=== PATIENT | female | born 1950 | race Caucasian/White ===

== ENCOUNTER 2019-01-13 12:06 | Emergency (ER) | payer OTHER, MEDICARE ==
[2019-01-13] MEDS ORDERED: FENTANYL CITRATE INJ/PF 100 MCG/2 ML AMPUL IV ONE (12:45)
--- NOTE | 2019-01-13 12:45 | ER Document Report ---
Entered by KIRILL MANZANARES SCRIBE 01/13/19 1226 Acting as scribe for:LUNA VALENCIA MD ED Extremity Problem, Lower - General Stated Complaint: RIGHT ANKLE INJURY Time Seen by Provider: 01/13/19 12:13 Primary Care Provider: [facility] [Provider Group] - 01/17/19 Mode of Arrival: Medic Information source: Patient Notes: Patient is a 68-year-old female who presents to the emergency department today with complaints of a fall that occurred just prior to arrival. Patient states she had been sitting down on the toilet at [facility] for a decent amount of time, she went to stand up, felt dizzy and fell. Patient has an obvious deformity to her right foot. - Related Data Allergies/Adverse Reactions: No Known Allergies Allergy (Verified 01/13/19 12:33) Past Medical History - General Information source: Patient, [facility] Records - Social History Smoking Status: Former Smoker - quit in 89 Cigarette use (# per day): No Frequency of alcohol use: Rare Drug Abuse: None Lives with: Family Family History: Reviewed & Not Pertinent - Past Medical History Cardiac Medical History: Reports: Hx Hypercholesterolemia, Hx Hypertension Past Surgical History: Reports: Hx Tonsillectomy, Other - Lumbar laminectomy in 2017 Review of Systems - Review of Systems Constitutional: No symptoms reported EENT: No symptoms reported Cardiovascular: No symptoms reported Respiratory: No symptoms reported Gastrointestinal: No symptoms reported Genitourinary: No symptoms reported Female Genitourinary: No symptoms reported Musculoskeletal: See HPI, Joint pain - right foot Skin: No symptoms reported Hematologic/Lymphatic: No symptoms reported Neurological/Psychological: No symptoms reported -: Yes All other systems reviewed and negative Physical Exam - Vital signs Vitals: Resp Pulse Ox 27 H 96 01/13/19 12:29 01/13/19 12:29 - Notes Notes: Physical Exam: General: Alert, appears well. HEENT: Normocephalic. Atraumatic. PERRL. Extraocular movements intact. Oroph arynx clear. Neck: Supple. Non-tender. Respiratory: No respiratory distress. Clear and equal breath sounds bilaterally. Cardiovascular: Regular rate and rhythm. Abdominal: Normal Inspection. Non-tender. No distension. Normal Bowel Sounds. Back: No gross abnormalities. Extremities: Upper extremities: Normal inspection. Normal ROM. Lower extremities: Obvious deformity of right foot. Lateral displacement of right foot clinically. 2+ dorsalis pedis pulse. Brisk capillary refill distally. Normal sensation distally. The fractured edge of the medial malleolus is tenting the skin, there is minor abrasion over this area, there is no break through the skin. Neurological: Normal cognition. AAOx4. Normal speech. Psychological: Normal affect. Normal Mood. Skin: Warm. Dry. Normal color. Course - Vital Signs Vital signs: Temp Pulse Resp BP Pulse Ox 98.3 F 14 130/74 H 99 01/13/19 12:32 01/13/19 14:02 01/13/19 14:02 01/13/19 14:02 - Laboratory Result Diagrams: 01/13/19 12:45 01/13/19 12:45 Laboratory results interpreted by me: 01/13/19 01/13/19 12:45 12:45 WBC 11.0 H Lymph % (Auto) 7.7 L Absolute Neuts (auto) 9.2 H Seg Neutrophils % 83.9 H Est GFR ( Amer) 53 L Est GFR (MDRD) Non-Af 43 L Glucose 115 H - Diagnostic Test Radiology reviewed: Image reviewed, Reports reviewed - Trimalleolar fracture dislocation of the right ankle. - EKG Interpretation by Me EKG shows normal: Sinus rhythm, [place], Intervals, QRS Complexes, ST-T Waves Rate: Normal - 69 Rhythm: NSR Voltage: Consistant with LVH P Waves: LAE When compared to previous EKG there are: Previous EKG unavailable - Consults Dr. Blakely Time consulted: 13:15 Procedures - Joint Reduction/Fracture Care Right Ankle Consent obtained: Yes - Verbal consent Conscious sedation: No Pre-procedure NV exam: Yes Fracture: Closed Post-procedure NV exam: Yes Complications: No Notes: 01/13/19 13:20 Ankle is reduced by gently pulling the foot downward, and forward, while placing lateral pressure to move the foot medially. Discharge - Discharge Clinical Impression: Trimalleolar fracture of left ankle Qualifiers: Encounter type: initial encounter Fracture type: closed Qualified Code(s): S82.852A - Displaced trimalleolar fracture of left lower leg, initial encounter for closed fracture Condition: Stable Disposition: HOME, SELF-CARE Additional Instructions: Fractured Ankle (Trimalleolar) You have a fracture of both bones of the lower leg at the ankle. If there is dispacement of the bones from their proper alignment, manipulation of the ankle and foot may be necessary to re-align the bones properly. This fracture wll require a cast for healing and some of the more serious fractures of this type will require surgery. If surgery is not required, the bones requires only protection and sufficient time for healing. The initial treatment is immobilization, elevation, and ice packs. Depending on the type of fracture, immobilization may consist of a splint or cast. The length of time required for healing depends on the type of fracture. You will be referred to an orthopedic surgeon who will re-assess you periodically to make certain that the bone heals without complications. It's important that you follow the instructions given you. Elevate your foot all the time. Use ice packs to help reduce swelling. Use a walker to get around her house as needed. Continue your regularly prescribed pain medication. Follow-up with Dr. Blakely at [facility] on --call on Monday to confirm an appointment time. RETURN TO THE EMERGENCY ROOM IF ANY NEW OR WORSENING SYMPTOMS. Referrals: [facility] [Provider Group] - 01/17/19 Scribe Attestation: 01/13/19 12:51 I personally performed the services described in the documentation, reviewed and edited the documentation which was dictated to the scribe in my presence, and it accurately records my words and actions. I personally performed the services described in the documentation, reviewed and edited the documentation which was dictated to the scribe in my presence, and it accurately records my words and actions.
--- NOTE | 2019-01-13 12:52 | RADIOLOGY REPORT (SQ) ---
EXAM DESCRIPTION: ANKLE RIGHT COMPLETE COMPLETED DATE/TIME: 01/13/2019 12:39 pm REASON FOR STUDY: fall; deformity to the ankle COMPARISON: None. NUMBER OF VIEWS: Three views. TECHNIQUE: AP, lateral, and oblique radiographic images acquired of the right ankle. LIMITATIONS: None. FINDINGS: MINERALIZATION: Normal. BONES: Comminuted fractures of the distal fibula, displaced fracture of the medial malleolus, and fra cture of the posterior malleolus. No worrisome bone lesions. JOINTS: Disruption of the tibiotalar joint. SOFT TISSUES: No soft tissue swelling. No foreign body. OTHER: No other significant finding. IMPRESSION: TRIMALLEOLAR FRACTURE WITH DISLOCATION OF THE ANKLE. TECHNICAL DOCUMENTATION: JOB ID: [id number] [employer]- All Rights Reserved Reading location - IP/workstation name: [email or web address]
[2019-01-13 13:10] LABS: ABSOLUTE BASOPHILS # (AUTO) 0.1 10^3/uL (0.0-0.2); ABSOLUTE EOSINOPHILS # (AUTO) 0.1 10^3/uL (0.0-0.6); ABSOLUTE LYMPHOCYTES (AUTO) 0.8 10^3/uL (0.5-4.7); ABSOLUTE MONOCYTES (AUTO) 0.7 10^3/uL (0.1-1.4); ABSOLUTE NEUT (AUTO) 9.2 10^3/uL (1.7-8.2); BASOPHILS % (AUTO) 0.6 % (0-2); EOSINOPHILS % (AUTO) 1.4 % (0-6); HEMATOCRIT 41.2 % (36.0-47.0); HEMOGLOBIN 13.8 g/dL (12.0-15.5); LYMPHOCYTES % (AUTO) 7.7 % (13-45); MEAN CORPUSCULAR HEMOGLOBIN 28.7 pg (27.0-33.4); MEAN CORPUSCULAR HGB CONC 33.5 g/dL (32.0-36.0); MEAN CORPUSCULAR VOLUME 86 fl (80-97); MONOCYTES % (AUTO) 6.4 % (3-13); PLATELET COUNT 207 10^3/uL (150-450); RED BLOOD COUNT 4.81 10^6/uL (3.72-5.28); RED CELL DISTRIBUTION WIDTH 13.8 % (11.5-14.0); SEGMENTED NEUTROPHILS % (AUTO) 83.9 % (42-78); TOTAL CELLS COUNTED % (AUTO) 100 %
[2019-01-13 13:22] LABS: ALBUMIN 4.2 g/dL (3.5-5.0); ALKALINE PHOSPHATASE 87 U/L (38-126); ANION GAP 9 (5-19); ASPARTATE AMINO TRANSFERASE 23 U/L (14-36); BILIRUBIN,DIRECT 0.3 mg/dL (0.0-0.4); BILIRUBIN,TOTAL 0.8 mg/dL (0.2-1.3); BLOOD UREA NITROGEN 18 mg/dL (7-20); CALCIUM 9.9 mg/dL (8.4-10.2); CARBON DIOXIDE 27 mmol/L (22-30); CHLORIDE 103 mmol/L (98-107); CREATINE KINASE 91 U/L (30-135); GLUCOSE 115 mg/dL (75-110); POTASSIUM 3.9 mmol/L (3.6-5.0); TOTAL PROTEIN 6.7 g/dL (6.3-8.2)
--- NOTE | 2019-01-13 14:12 | RADIOLOGY REPORT (SQ) ---
EXAM DESCRIPTION: CT CERVICAL SPINE WITHOUT COMPLETED DATE/TIME: 01/13/2019 1:57 pm REASON FOR STUDY: UNWITNESSED SYNCOPAL EPISODE COMPARISON: None. TECHNIQUE: Axial images acquired through the cervical spine without intravenous contrast. Images re viewed with lung, soft tissue and bone windows. Reconstructed coronal and sagittal MPR images review ed. Images stored on PACS. All CT scanners at this facility use dose modulation, iterative reconstruction, and/or weight based d osing when appropriate to reduce radiation dose to as low as reasonably achievable (ALARA). [facility]: Dose Right [facility]: CareDose [facility]: Dose Right [facility]: Teradose 4D [facility]: Smart [email or web address] RADIATION DOSE: CT Rad equipment meets quality standard of care and radiation dose reduction techniq ues were employed. CTDIvol: 17.2 mGy. DLP: 370 mGy-cm. mGy. LIMITATIONS: None. FINDINGS: ALIGNMENT: Anatomic. MINERALIZATION: Normal. VERTEBRAL BODIES: No fractures or dislocation. DISCS: No significant disc disease. FACETS, LATERAL MASSES, POSTERIOR ELEMENTS: No fractures. No dislocation. No acute findings. HARDWARE: None in the spine. VISUALIZED RIBS: No fractures. LUNG APICES AND SOFT TISSUES: No significant or acute findings. OTHER: No other significant finding. IMPRESSION: NO ACUTE OR SIGNIFICANT FINDINGS IN THE CERVICAL SPINE. TECHNICAL DOCUMENTATION: JOB ID: [id number] Quality ID # [id number]: Final reports with documentation of one or more dose reduction techniques (e.g., Au tomated exposure control, adjustment of the mA and/or kV according to patient size, use of iterative reconstruction technique) 2010 [employer]- All Rights Reserved Reading location - IP/workstation name: [email or web address]
--- NOTE | 2019-01-13 14:13 | RADIOLOGY REPORT (SQ) ---
EXAM DESCRIPTION: CT HEAD WITHOUT COMPLETED DATE/TIME: 01/13/2019 1:57 pm REASON FOR STUDY: UNWITNESSED SYNCOPAL EPISODE COMPARISON: None. TECHNIQUE: Axial images acquired through the brain without intravenous contrast. Images reviewed wi th bone, brain and subdural windows. Additional sagittal and coronal reconstructions were generated. Images stored on PACS. All CT scanners at this facility use dose modulation, iterative reconstruction, and/or weight based d osing when appropriate to reduce radiation dose to as low as reasonably achievable (ALARA). [facility]: Dose Right [facility]: CareDose [facility]: Dose Right [facility]: Teradose 4D [facility]: Smart [employer] RADIATION DOSE: CT Rad equipment meets quality standard of care and radiation dose reduction techniq ues were employed. CTDIvol: 53.2 mGy. DLP: 1017 mGy-cm. mGy. LIMITATIONS: None. FINDINGS: VENTRICLES: Normal size and contour. CEREBRUM: No masses. No hemorrhage. No midline shift. No evidence for acute infarction. Normal gra y/white matter differentiation. No areas of low density in the white matter. CEREBELLUM: No masses. No hemorrhage. No alteration of density. No evidence for acute infarction. EXTRAAXIAL SPACES: No fluid collections. No masses. ORBITS AND GLOBE: No intra- or extraconal masses. Normal contour of globe without masses. CALVARIUM: No fracture. PARANASAL SINUSES: No fluid or mucosal thickening. SOFT TISSUES: No mass or hematoma. OTHER: No other significant finding. IMPRESSION: NORMAL BRAIN CT WITHOUT CONTRAST. EVIDENCE OF ACUTE STROKE: NO. COMMENT: Quality ID # [id number]: Final reports with documentation of one or more dose reduction techniques (e.g., Automated exposure control, adjustment of the mA and/or kV according to patient size, use of iterative reconstruction technique) TECHNICAL DOCUMENTATION: JOB ID: [id number] [employer]- All Rights Reserved Reading location - IP/workstation name: [email or web address]
--- NOTE | 2019-01-13 14:14 | RADIOLOGY REPORT (SQ) ---
EXAM DESCRIPTION: ANKLE RIGHT COMPLETE COMPLETED DATE/TIME: 01/13/2019 1:56 pm REASON FOR STUDY: post reduction COMPARISON: 01/13/2019. NUMBER OF VIEWS: Two views. TECHNIQUE: AP and lateral radiographic images acquired of the right ankle. LIMITATIONS: None. FINDINGS: MINERALIZATION: Normal. BONES: Trimalleolar fracture with improved alignment and reduction of the tibiotalar dislocation foll owing closed reduction. JOINTS: No effusions. SOFT TISSUES: No soft tissue swelling. No foreign body. OTHER: No other significant finding. IMPRESSION: IMPROVED APPEARANCE FOLLOWING CLOSED REDUCTION. TECHNICAL DOCUMENTATION: JOB ID: [id number] [employer]- All Rights Reserved Reading location - IP/workstation name: [email or web address]
--- NOTE | 2019-01-13 14:16 | RADIOLOGY REPORT (SQ) ---
EXAM DESCRIPTION: CT RT LOWER EXTREMITY WITHOUT COMPLETED DATE/TIME: 01/13/2019 1:57 pm REASON FOR STUDY: Right ankle trimalleolar fracture COMPARISON: Radiographs from earlier. EXAM PARAMETERS: TECHNIQUE:Axial imaging performed through the right ankle with reformatted coronal and sagittal imaging windowed for bone and soft tissues. Images saved to PACS. 3D IMAGING: Were 3D images as MIP, SSD, or volume rendering performed at the work station? No All CT scanners at this facility use dose modulation, iterative reconstruction, and/or weight based d osing when appropriate to reduce radiation dose to as low as reasonably achievable (ALARA). [facility]: Dose Right [facility]: SureCare [facility]: Dose Right [facility]: Teradose 4D [facility]: Smart [employer] RADIATION DOSE: CT Rad equipment meets quality standard of care and radiation dose reduction techniqu es were employed. CTDIvol: 4.1 mGy. DLP: 65 mGy-cm. mGy. LIMITATIONS: None. FINDINGS: SOFT TISSUES: Soft tissue swelling about the ankle. Limited assessment with CT. No radio paque foreign body detected. BONES: As seen on radiography, there are extensive ankle fractures. Includes comminuted fracture thr ough the distal fibula, nondisplaced transverse minimally comminuted medial malleolus fracture. Also comminuted fracture through posterior malleolus of the tibia. This is also minimally comminuted wit h slight superior displacement. Mortise is maintained without overt subluxation or dislocation detec hossein currently. Talar dome intact. Calcaneus and other visualized tarsals look intact. MINERALIZATION: Normal. OTHER: No other significant finding. IMPRESSION: 1. Trimalleolar ankle fracture. Previously noted dislocation has been reduced. TECHNICAL DOCUMENTATION: JOB ID: [id number] [facility] [id number]: Final reports with documentation of one or more dose reduction techniques (e.g., Automate d exposure control, adjustment of the mA and/or kV according to patient size, use of iterative recons truction technique) 2010 [employer]- All Rights Reserved Reading location - IP/workstation name: [email or web address]
[2019-01-13 15:20] VITALS: BP 148/90
--- NOTE | 2019-01-13 22:35 | EKG REPORT ---
SEVERITY:- ABNORMAL ECG - SINUS RHYTHM PROBABLE LEFT ATRIAL ABNORMALITY LEFT VENTRICULAR HYPERTROPHY DIFFUSE NONSPECIFIC ST-T CHANGES : Confirmed by: Bro Bustillo MD 13-Jan-2019 22:34:53
== END 2019-01-13 15:26 | disposition home or self-care (01) ==
LOC: ER 12:06
DX: S82.852A Displaced trimalleolar fracture of left lower leg, initial encounter for closed fracture (principal); M25.571 Pain in right ankle and joints of right foot; W19.XXXA Unspecified fall, initial encounter; Y93.89 Activity, other specified; Y92.22 Religious institution as the place of occurrence of the external cause; R42 Dizziness and giddiness; I10 Essential (primary) hypertension; Z87.891 Personal history of nicotine dependence
CPT/HCPCS: 93005; 99283; 36415; 82550; 85025; 80053; 84484; 73610; 70450; 72125; 73700; 93010; 27818; J3010

== ENCOUNTER 2019-01-22 11:49 | Observation (INO) | payer OTHER, MEDICARE ==
[~2019-01-22 11:49] MED LIST: CEFAZOLIN SODIUM 2 GM in DEXTROSE 5%-WATER 100 ML IV PRN
[2019-01-22] MEDS ORDERED: DEXAMETHASONE SOD PHOSPHATE INJ 4 MG/1 ML VIAL ONE (12:04)
[2019-01-22] MEDS ORDERED: LIDOCAINE 2% INJ-PF (20 MG/ML) 2 ML AMPUL ONE (12:04)
[2019-01-22] MEDS ORDERED: ONDANSETRON HCL INJ/PF 4 MG/2 ML SDV ONE ×2 (12:04→18:51)
[2019-01-22] MEDS ORDERED: FENTANYL CITRATE INJ/PF 250 MCG/5 ML AMPULE ONE (14:06)
[2019-01-22] MEDS ORDERED: MIDAZOLAM 2 MG/2 ML INJ ONE (14:06)
[2019-01-22] MEDS ORDERED: PROPOFOL INJ 200 MG/20 ML VIAL IV ONE ×2 (14:07→14:17)
[2019-01-22] MEDS ORDERED: LIDOCAINE 2% INJ (20 MG/ML) 20 ML MDV ONE (14:18)
[2019-01-22] MEDS ORDERED: LIDOCAINE 2%/EPINEPHRINE INJ 20 ML VIAL ONE (15:00)
[2019-01-22] MEDS ORDERED: LIDOCAINE 1% INJ-PF (10 MG/ML) 30 ML SDV ONE (15:01)
[2019-01-22] MEDS ORDERED: BUPIVACAINE HCL 0.5 % INJ/PF 30 ML SDV ONE (15:01)
[2019-01-22] MEDS ORDERED: ROPIVACAINE HCL 0.5% INJ/PF (5 MG/1 ML) 30 ML SDV ONE (15:04)
[2019-01-22] MEDS ORDERED: LIDOCAINE 1% INJ (10 MG/ML) 10 ML MDV INJ ONE ×2 (15:30)
[2019-01-22] MEDS ORDERED: BUPIVACAINE HCL 0.5 % INJ/PF 30 ML SDV INJ ONE ×2 (15:30)
[2019-01-22] MEDS ORDERED: MEPERIDINE HCL/PF INJ 25 MG/1 ML DISP.SYRIN IV PRN (15:35)
[2019-01-22] MEDS ORDERED: PROMETHAZINE HCL INJ 25 MG/1 ML VIAL IV PRN (15:35)
[2019-01-22] MEDS ORDERED: FENTANYL CITRATE INJ/PF 100 MCG/2 ML AMPUL IV PRN ×3 (15:35)
[2019-01-22] MEDS ORDERED: DIPHENHYDRAMINE HCL 50 MG/ML VIAL IV PRN (15:35)
[2019-01-22] MEDS ORDERED: ONDANSETRON 4 MG TAB.RAPDIS PO PRN (18:05)
[2019-01-22] MEDS ORDERED: ZOLPIDEM TARTRATE 5 MG TABLET PO PRN (18:05)
[2019-01-22] MEDS ORDERED: NORMAL SALINE 1000 ML 1,000 ML IV PRN (18:05)
[2019-01-22] MEDS ORDERED: MAG HYDROX/AL HYDROX/SIMETH SUSP 30 ML UDCUP PO PRN (18:05)
[2019-01-22] MEDS ORDERED: FENTANYL CITRATE INJ/PF 100 MCG/2 ML AMPUL ONE (18:08)
[2019-01-22] MEDS ORDERED: TRAMADOL HCL 50 MG TABLET PO PRN (18:15)
[2019-01-22] MEDS ORDERED: DIPHENHYDRAMINE HCL 25 MG CAPSULE PO PRN (18:16)
--- NOTE | 2019-01-22 18:26 | RADIOLOGY REPORT (SQ) ---
EXAM DESCRIPTION: NO CHG FLUORO; ANKLE RIGHT AP/LATERAL COMPLETED DATE/TIME: 01/22/2019 5:55 pm REASON FOR STUDY: ORIF RIGHT ANKLE COMPARISON: None. FLUOROSCOPY TIME: 0.8 minutes 12 Images saved to PACS LIMITATIONS: None. PROCEDURE: ORIF right ankle FINDINGS: Images from fluoro document the procedure. There are 2 screws in the medial malleolus and a long compression plate on the distal fibula. IMPRESSION: ORIF right ankle. Refer to operative note for further information. COMMENT: PQRS 6045F: Fluoroscopy time of the procedure is documented in the report. TECHNICAL DOCUMENTATION: JOB ID: [id number] [employer]- All Rights Reserved Reading location - IP/workstation name: [email or web address]
--- NOTE | 2019-01-22 18:26 | RADIOLOGY REPORT (SQ) ---
EXAM DESCRIPTION: NO CHG FLUORO; ANKLE RIGHT AP/LATERAL COMPLETED DATE/TIME: 01/22/2019 5:55 pm REASON FOR STUDY: ORIF RIGHT ANKLE COMPARISON: None. FLUOROSCOPY TIME: 0.8 minutes 12 Images saved to PACS LIMITATIONS: None. PROCEDURE: ORIF right ankle FINDINGS: Images from fluoro document the procedure. There are 2 screws in the medial malleolus and a long compression plate on the distal fibula. IMPRESSION: ORIF right ankle. Refer to operative note for further information. COMMENT: PQRS 6045F: Fluoroscopy time of the procedure is documented in the report. TECHNICAL DOCUMENTATION: JOB ID: [id number] [employer]- All Rights Reserved Reading location - IP/workstation name: [email or web address]
[2019-01-22] MEDS ORDERED: HYDROMORPHONE HCL INJ/PF 2 MG/ML AMPULE ONE (18:32)
[2019-01-22] MEDS ORDERED: OXYCODONE-ACETAMINOPHEN 5-325 MG TABLET ONE (18:35)
[2019-01-22] MEDS: OXYCODONE-ACETAMINOPHEN 5-325 MG TABLET PO PRN ×2 (18:38→23:57)
--- NOTE | 2019-01-22 19:27 | RADIOLOGY REPORT (SQ) ---
EXAM DESCRIPTION: ANKLE RIGHT COMPLETE COMPLETED DATE/TIME: 01/22/2019 6:46 pm REASON FOR STUDY: Post op COMPARISON: 01/22/2019 01/13/2019 NUMBER OF VIEWS: Three views. TECHNIQUE: AP, lateral, and oblique radiographic images acquired of the right ankle. LIMITATIONS: Cast material. FINDINGS: MINERALIZATION: Normal. BONES: Internal fixation of ankle fractures with 2 cannulated screws in the medial malleolus and a co mpression plate on the distal fibula with multiple screws. JOINTS: No effusions. SOFT TISSUES: No soft tissue swelling. No foreign body. OTHER: No other significant finding. IMPRESSION: Internal fixation of ankle fractures. TECHNICAL DOCUMENTATION: JOB ID: [id number] [employer]- All Rights Reserved Reading location - IP/workstation name: [email or web address]
--- NOTE | 2019-01-22 20:48 | Operative Report ---
Operative Report DATE OF SURGERY: 01/22/19 PREOPERATIVE DIAGNOSIS: Right trimalleolar ankle fracture dislocation. Closed POSTOPERATIVE DIAGNOSIS: Right trimalleolar ankle fracture dislocation, closed OPERATION: Right ankle open reduction internal fixation for a trimalleolar fracture SURGEON: ÁNGELA ATWOOD JR ANESTHESIA: GA COMPLICATIONS: None ESTIMATED BLOOD LOSS: 75 PROCEDURE: The patient presents today with a right trimalleolar volar ankle fracture in a splint. She initially broke her ankle about 10 days ago. Her ankle dislocation was reduced in the emergency department and placed in a splint with excellent alignment on the postreduction films. However upon presenting to my clinic she had a subluxed and required re-reduction with splint application. Due to a large medial blister we decided to delay surgery. She presented again to my clinic on 01 21, the splint was explored and the skin was deemed stable for surgery. She presented to the operating's operative suite and was placed supine on the operative table. She was provided with 2 g of Ancef preoperatively. Initially a spinal anesthesia was attempted however this was not successful and she was placed under general anesthesia. Her splint was removed, which revealed that the medial blister was still present, but in the position that could be avoided with a minimal incision on the medial side, the lateral ankle skin appeared healthy without any signs of concerns. The leg was elevated and prepped and draped in standard sterile fashion with the addition of a tourniquet. After an appropriate timeout the incision site was marked and an incision was made through skin. Careful dissection was carried down to the fibula with periosteal elevators and cautery of any overt bleeding. Care was taken to avoid the superficial peroneal nerve branches. The distal fibula was severely comminuted and obtaining a cortical read with lag screws was not possible, therefore the decision was made to proceed with a bridge plating technique. With the assistance of fluoroscopy the plate was applied distally and held in place with K wires. An appropriate length plate was chosen and initial tentative fixation was achieved with a single screw and K wire distally as well as a proximal K wire. This was again evaluated on AP and lateral fluoroscopy, and then with the appropriate application of reduction force applied to the ankle, the plate was secured in place with subsequent screws. The K wires were then removed. We then turned our attention to the medial malleolus, and avoidance of the blister was achieved by making a distal mini incision that allowed us to visualize the shoulder of the medial malleolus. Once we achieved anatomic reduction with the assistance of fluoroscopy and K wire placement, the measurement was taken off the K wires and and cannulated screws were then placed over the K wires after over drilling the distal fragment. Excellent reduction was achieved in both the medial mall and the lateral mall were very stable however upon applying external rotation stress, fluoroscopy revealed continued widening of the medial clear space as well as the syndesmosis. The decision was then made to apply a syndesmotic tight rope. The fibula was palpated through a range of motion to analyze the appropriate seating within the incisura, when excellent syndesmotic reduction was achieved a reduction forcep was applied. After this a drill through the fibular plate parallel to the plafond and was performed for the syndesmotic tight rope, then the tight rope was inserted into that drill hole, the button was reduced and the tight rope sutures were tied. Subsequent stress test revealed a stable syndesmosis. The wounds were copiously irrigated with sterile saline 2-0 Vicryl was then applied to the fascial layer on the lateral side to achieve soft tissue closure over the plate subsequent to this a 2-0 Vicryl was utilized subcutaneously and interrupted running fashion. Finally the lateral side was sewn with 3-0 nylon in a horizontal mattresses. On the medial side a 3-0 Vicryl was utilized to achieve subcutaneous closure followed by a running 3-0 nylon which was chosen to minimize soft tissue constriction. A sterile dressing was then placed on the medial and lateral incisions followed by 4 x 4's ABDs and a sterile [place]. Following this a splint was applied the patient was then awakened from anesthesia and transferred to her PACU bed. She was transferred to PACU in stable condition. In PACU postoperative films demonstrated excellent alignment and reduction of the patient will be held here overnight per her request and for pain control as well as social factors. She will be on aspirin 325 daily for DVT prophylaxis.
[2019-01-22] MEDS ORDERED: ASPIRIN 325 MG TABLET PO SCH (21:00)
[2019-01-22] MEDS: ACETAMINOPHEN 325 MG TABLET PO SCH ×2 (22:15→23:56)
[2019-01-22] MEDS: ASPIRIN 325 MG TABLET PO SCH (22:16)
[2019-01-23] MEDS: ACETAMINOPHEN 325 MG TABLET PO SCH (07:28)
[2019-01-23] MEDS ORDERED: ZOLPIDEM TARTRATE 5 MG TABLET PO PRN (07:36)
[2019-01-23] MEDS ORDERED: (PENDING PHARMACY ID) (Potassium Citrate [Urocit-K] 10 MEQ) PO SCH ×2 (07:45→10:00)
[2019-01-23] MEDS ORDERED: (PENDING PHARMACY ID) (Atenolol [Atenolol] 100 MG) PO SCH (07:45)
[2019-01-23] MEDS ORDERED: (PENDING PHARMACY ID) (Citalopram Hydrobromide [Celexa 40 Mg Tablet] 1 TAB) PO SCH (07:45)
[2019-01-23] MEDS ORDERED: (PENDING PHARMACY ID) (Lisinopril/Hydrochlorothiazide [Lisinopril-Hctz 20-12.5 Mg Tab] 1 E PO SCH (07:45)
--- NOTE | 2019-01-23 07:49 | PDOC PROGRESS REPORT ---
Subjective Subjective:: The patient reports continued severe pain overnight. I discussed with her her long-term pain medication use and that she is somewhat desensitized to the pain medication she is currently getting, pain controll may be difficult for her. We did adjust her medications this morning. Otherwise she is feeling okay, no new signs or symptoms. Reason For Visit: STATUS POST RIGHT TRIMALLEOLAR ANKLE ORIF Physical Exam Vital Signs: Temp Pulse Resp BP Pulse Ox 98.5 F 80 18 168/72 H 95 01/23/19 03:40 01/23/19 03:40 01/23/19 03:40 01/23/19 03:40 01/23/19 03:40 Intake & Output 01/22/19 01/23/19 01/24/19 06:59 06:59 06:59 Intake Total 1500 Balance 1500 Weight 85.28 kg 80.5 kg Physical Exam: General appearance: PRESENT: no acute distress, cooperative, well-nourished Head exam: PRESENT: atraumatic, normocephalic Eye exam: PRESENT: EOMI Ear exam: PRESENT: normal external ear exam Mouth exam: PRESENT: neck supple Neck exam: ABSENT: tracheal deviation Respiratory exam: PRESENT: symmetrical, unlabored. ABSENT: accessory muscle use, wheezes Pulses: PRESENT: normal radial pulses, normal dorsalis pedis pul Vascular exam: PRESENT: normal capillary refill GI/Abdominal exam: ABSENT: distended, firm Extremities exam: PRESENT: full ROM Musculoskeletal exam: PRESENT: full ROM, normal inspection Neurological exam: PRESENT: alert, awake, oriented to person, oriented to place, oriented to time Psychiatric exam: PRESENT: appropriate affect. ABSENT: agitated Focused psych exam: ABSENT: catatonic Skin exam: PRESENT: intact. ABSENT: dry All as above aside from that noted in the HPI and the following: Right lower extremity and splint -Grossly neurovascular intact. She is moving all toes and sensation is intact to all exposed toes. Splint is clean dry and intact. Capillary refill less than 2 seconds. Results Laboratory Results: 01/22/19 13:38 01/22/19 13:38 Potassium 4.3 Impressions: Ankle X-Ray 01/22/19 00:00 IMPRESSION: Internal fixation of ankle fractures. Fluoroscopy 01/22/19 00:00 IMPRESSION: ORIF right ankle. Refer to operative note for further information. Assessment & Plan - Diagnosis (1) Fracture of ankle, trimalleolar, right, closed Is this a current diagnosis for this admission?: Yes Plan: The patient is to follow-up with me in the office in 7 to 10 days. -Aspirin daily for DVT prophylaxis -We have made some changes to her pain medication to adjust for postsurgical pain. Scripts are in the chart. -I have also provided her with some zolpidem for a short course due to difficulty sleeping. -If there is any acute changes she is to call the office or come to my office as soon as possible, if it is off-hours then she is to present to the emergency department. -She is to keep her leg very elevated at all times, this was demonstrated to her in the room today. -Nonweightbearing right lower extremity at all times.
[2019-01-23] MEDS ORDERED: OXYCODONE HCL SR 10 MG TABLET PO SCH (08:30)
[2019-01-23] MEDS ORDERED: ATORVASTATIN CALCIUM 40 MG TABLET PO SCH (10:00)
[2019-01-23] MEDS ORDERED: CITALOPRAM HYDROBROMIDE 20 MG TABLET PO SCH (10:00)
[2019-01-23] MEDS ORDERED: HYDROCHLOROTHIAZIDE 12.5 MG TABLET PO SCH (10:00)
[2019-01-23] MEDS ORDERED: DOCUSATE SODIUM 100 MG CAPSULE PO SCH (10:00)
[2019-01-23] MEDS ORDERED: ATENOLOL 50 MG TABLET PO SCH (10:00)
[2019-01-23] MEDS ORDERED: LISINOPRIL 10 MG TABLET PO SCH (10:00)
[2019-01-23] MEDS: ASPIRIN 325 MG TABLET PO SCH (11:01)
[2019-01-23 11:08] VITALS: BP 141/64
--- NOTE | 2019-02-18 14:25 | Progress Note ---
Provider Note Provider Note: Discharge NOTE Patient Visit Information Activity Restrictions or Additional Instructions Follow-up New Prescriptions and Instructions from this Visit ( See detailed Home Medication List for all medications ) 1. OxycodoneHCl/Acetaminophen[Percocet 5-325 mgTablet] 1 tab oral every 4 hours as needed as needed #20 tablet 1 tab Tablet Refills: 0 2. Zolpidem Tartrate[Ambien 5 mg Tablet] 5 mg oral at bedtime as needed as needed #10 tablet 5 mg Tablet Refills: 0 3. Aspirin [Aspirin 325mg Tablet] 325 mg oral daily #42 tablet 325 mg Tablet For DVT PPX Refills: 0 4. Aspirin [Aspirin 325mg Tablet] 325 mg oral daily tablet 325 mg Tablet Refills: 0 5. Oxycodone HCl[Oxycontin Sr 10 mgTablet] Date: Acct Num: Med Rec Num: Name: Location: Primary Provider: Patient is to keep her leg elevated at all times possible, preferably above her heart. She has nonweightbearing on the right lower extremity and total clearance by me. 01/22/19 [id number] BHARAT MORE ÁNGELA Saez JR She is to call my office with any further questions or concerns and may present if she experiences any undue pain or symptoms outer portion. BHARAT MORE has been referred to the following clinics/specialists for follow-up care: UMER MARQUEZ MD [address] [place] [address] ÁNGELA ATWOOD JR, [facility], [address] [place] [address] Follow-Up Plan: 02/01/19 1:00 pm PLEASE CALL THE OFFICE FOR ANY QUESTION OR CONCERN. YOUR APPOINTMENT IS WITH DR. RAI TOBIN @ 1:00 PM. 10 mg oral every 12 hours #10 tab.sr.12h 10 mg Tab.Sr.12h Refills: 0 Date: Acct Num: Med Rec Num: Name: Location: Primary Provider: 01/22/19 [id number] BHARAT Morales ARGENIS ÁNGELA Saez JR Discharge Plan of Care-Adult GENERAL DISCHARGE DATA: Discharge Date: 01/23/19 Discharge Time: Discharged To: HOME, SELF-CARE Coumadin Therapy Monitored By: Provider's Phone #: Next PT/INR Date: VITAL SIGNS AT DISCHARGE: Blood Pressure: 141/64 Pulse: 68Respirations: 12 Oxygen Saturation: 96Pain Level: 3 MEDICARE PATIENTS ONLY: Clothes Wallet/Pocket Book Money Electronic Devices HOME CARE ASSISTANCE: Home Care Assistance (See Referrals): Provided by [facility] to Provide: Temperature: 98.1 F Patient or Patient It Support Consultant Signature of Medicare Notification: PERSONAL BELONGINGS & VALUABLES: Date: Acct Num: Med Rec Num: Name: Location: Primary Provider: [address] Main Number Date/Time Medicare Discharge Notice Given: Patient Waives Four (4) Hour Stay After Notification of Medicare Rights: 01/22/19 [id number] ÁNGELA Romo 2, JR Patient or Patient It Support Consultant Signature that Personal Belongings & Valuables as listed above were received: Medical Equipment for Home Use: HOME CARE INSTRUCTIONS: Pain Management Plan: Information Handouts Provided For: Other Comments: NUTRITION AT HOME: As Tolerated MOBILITY AT HOME: No Driving Keep Legs Elevated Other RESPIRATORY CARE AT HOME: ADDITIONALL INSTRUCTIONS: Additional Comments: Date: Acct Num: Med Rec Num: Name: Location: Primary Provider: 01/22/19 [id number] ÁNGELA Romo 2, JR Special Instructions: Keep right leg elevated above heart level at all times. No weight bearin to right leg as instructed by physician. Take all prescribed medications and keep follow up appointment. Patient and/or Patient It Support Consultant Verbalize and/or Demonstrate Understanding of: Care of Surgical Site Patient and/or Patient It Support Consultant understand to report the following to the physician: Increase in Pain Fever over 101 Degrees Unusual Bleeding Numbness If you had an IV catheter or Urinary catheter during your hospital stay, watch for signs and symptoms of infection: *IV catheter: fever; redness, pain, or drainage at the IV site Date: Acct Num: Med Rec Num: Name: Location: Primary Provider: 01/22/19 [id number] BHARAT MORE 2 ÁNGELA Abrams JR *Urinary catheter: fever; a strong urge to urinate or a burning sensation when urinating; bloody, cloudy or strong smelling urine; lower abdominal pain If you had a TIA/Stroke: Modify your risk factors. If you experience stroke symptoms (sudden weakness, numbness, confusion, trouble speaking, trouble seeing, dizziness and/or headache) - CALL 911 If you have CHF (Heart Failure): Schedule a follow-up appointment with your doctor. Slowly increase your activity level as tolerated. Eat a low salt diet. Weigh yourself daily. Call your doctor for a weight gain of 2-3 pounds in a day or 3-5 pounds in a week, shortness of breath and/or swelling. If you use tobacco products-STOP. For assistance with quitting you can call the [place] Tobacco Quit Line at . National Suicide Prevention Lifeline is 4-952-706-EDZP Keep your body clean and healthy. Wash your hands often to keep germs from spreading. You may receive a patient satisfaction survey in the mail approximately two weeks after discharge. We would greatly appreciate you taking the time to complete and return this survey. Your feedback is used to reward and recognize staff and to make meaningful changes to our services and processes. Should you have questions or need assistance after being discharged from [facility], you may call the main hospital number and ask the cup trimming machine operator to contact your physician. If you experience a life threatening emergency call 911. Date: Acct Num: Med Rec Num: Name: Location: Primary Provider: Patient Instructions Signature Page Patient Name: Guardian Name: on this date: BHARAT MORE 01/23/19-11:08 New Prescriptions and Instructions from this visit 1. OxycodoneHCl/Acetaminophen[Percocet 5-325 mgTablet] 1 tab oral every 4 hours as needed as needed #20 tablet 1 tab Tablet Refills: 0 2. Zolpidem Tartrate[Ambien 5 mg Tablet] 5 mg oral at bedtime as needed as needed #10 tablet 5 mg Tablet Refills: 0 3. Aspirin [Aspirin 325mg Tablet] 325 mg oral daily #42 tablet 325 mg Tablet For DVT PPX Refills: 0 4. Aspirin [Aspirin 325mg Tablet] 325 mg oral daily tablet 01/22/19 [id number] BHARAT MORE [address] [place] ÁGNELA ATWOOD JR Activity Restrictions or Additional Instructions Patient is to keep her leg elevated at all times possible, preferably above her heart. She has nonweightbearing on the right lower extremity and total clearance by me. She is to call my office with any further questions or concerns and may present if she experiences any undue pain or symptoms outer portion. Follow Ups BHARAT MORE has been referred to the following clinics/specialists for follow-up care: UMER MARQUEZ MD [address] [place] [address] ÁNGELA ATWOOD JRFORMERLY [facility], [address] [place], [place] [id number] Follow-Up Plan: 02/01/19 1:00 pm PLEASE CALL THE OFFICE FOR ANY QUESTION OR CONCERN. YOUR APPOINTMENT IS WITH DR. RAI TOBIN @ 1:00 PM. 325 mg Tablet Refills: 0 5. Oxycodone HCl[Oxycontin Sr 10 mgTablet] 10 mg oral every 12 hours #10 tab.sr.12h 10 mg Tab.Sr.12h Refills: 0 I have read and understand the instructions given to me by my caregivers. BHARAT MORE Print Patient Name Patient (or Guardian) Signature Caregiver/RN/Doctor Signature
--- NOTE | 2019-02-19 11:51 | Discharge Summary ---
Discharge Summary (SDC) - Discharge Final Diagnosis: Right trimalleolar ankle fracture S/P open reduction internal fixation. Date of Surgery: 01/22/19 Condition: Good Forms: Discharge POC-Adult Treatment or Instructions: Patient is to keep her leg elevated at all times possible, preferably above her heart. She has nonweightbearing on the right lower extremity and total clearance by me. She is to call my office with any further questions or concerns and may present if she experiences any undue pain or symptoms outer portion. Prescriptions: Zolpidem Tartrate [Ambien 5 mg Tablet] 5 mg PO HSP PRN #10 tablet PRN Reason: Aspirin [Aspirin 325 mg Tablet] 325 mg PO DAILY #42 tablet Oxycodone HCl [Oxycontin Sr 10 mg Tablet] 10 mg PO Q12 #10 tab.sr.12h Oxycodone HCl/Acetaminophen [Percocet 5-325 mg Tablet] 1 tab PO Q4HP PRN #20 tablet PRN Reason: Referrals: UMER MARQUEZ MD [Primary Care Provider] - ÁNGELA ATWOOD JR, DO [ACTIVE PROVISIONAL STAFF] - 02/01/19 1:00 pm (PLEASE CALL THE OFFICE FOR ANY QUESTION OR CONCERN. YOUR APPOINTMENT IS WITH DR. RAI TOBIN @ 1:00 PM.) Discharge Activity: No Driving, Keep Legs Elevated, Other Home Care Assistance: Provided by Family Adaptive Devices on Discharge: Wheelchair Report the Following to Your Physician Immediately: Increase in Pain, Fever over 101 Degrees, Unusual Bleeding, Numbness
== END 2019-01-23 12:25 | disposition home or self-care (01) ==
LOC: OROUT 11:49 → 2N 18:05 → OROUT 21:46 → 2N 21:46 → UNDOFXSDCRRACCOM 01-23 02:01 → OROUT 01-23 12:25 → 2N 01-23 12:25
PROVIDERS: ADMIT Orthopaedic Surgery; ATTEND Orthopaedic Surgery
PROC: 0QSG04Z Reposition Right Tibia with Internal Fixation Device, Open Approach (ICD-10-PCS; principal; 2019-01-22 14:30)
DX: S82.851A Displaced trimalleolar fracture of right lower leg, initial encounter for closed fracture (principal); S90.521A Blister (nonthermal), right ankle, initial encounter; X58.XXXA Exposure to other specified factors, initial encounter; I10 Essential (primary) hypertension; G47.9 Sleep disorder, unspecified; F41.9 Anxiety disorder, unspecified; R42 Dizziness and giddiness; I25.10 Atherosclerotic heart disease of native coronary artery without angina pectoris; I25.2 Old myocardial infarction; Z85.3 Personal history of malignant neoplasm of breast; Z79.899 Other long term (current) drug therapy
CPT/HCPCS: 27822; 36415; 84132; 73600; 73610; 01480; C1713 ×9; C1769; J2795; J2250; J3490 ×4; J0690; J1100; J3010 ×2; J1170; J2405; J7060; J7030; J2704

== ENCOUNTER → 2019-01-22 | Outpatient (CLI) | payer OTHER, MEDICARE ==
--- NOTE | 2019-01-22 20:53 | EKG REPORT ---
SEVERITY:- ABNORMAL ECG - SINUS RHYTHM LEFT VENTRICULAR HYPERTROPHY : Confirmed by: Caren Carey MD 22-Jan-2019 20:52:24
== END ==
LOC: OD 11:16
PROVIDERS: ATTEND Orthopaedic Surgery
DX: Z01.811 Encounter for preprocedural respiratory examination (principal)
CPT/HCPCS: 93005; 93010